=== PATIENT | male | born 1945 | race Caucasian/White ===

== ENCOUNTER 2023-05-29 15:33 | Emergency (ER) | payer OTHER, BC ==
[~2023-05-29] VITALS: Ht 175.3 cm; Wt 81.0 kg
[~2023-05-29 15:33] MED LIST: AGGRENOX 25 MG-21 EA PO; ALLEGRA ALLERG180 MG PO; AMLODIPINE BESYL5 MG PO; ASPIR-LOW81 MG PO; ASPIRIN325 MG PO; FLUTICASONE PRO16 GM NAS; LOSARTAN POTAS100 MG PO; MONTELUKAST SOD10 MG PO; PROAIR HFA8.5 GM INH; PULMICORT FLE180 MCG INH; RANITIDINE HCL150 MG PO; SIMVASTATIN40 MG PO; TERBINAFINE HC250 MG PO; VIAGRA100 MG PO
[2023-05-29 16:01] LABS: BASOPHILS 0.8 % (0-2); EOSINOPHILS 1.9 % (0-6); HEMOGLOBIN 15.4 g/dL (12.0-18.0); LYMPHOCYTES 19.2 % (24-44); MCH 31.1 (27-36); MCHC 33.5 g/dl (30-36); MCV 92.7 fl (81-99); MONOCYTES 9.7 % (0-12); NEUTROPHILS 68.4 % (39-80); PLATELET COUNT 257 K/uL (140-440); RBC 4.96 M/ul (4.3-5.7); RDW 14.9 (10.5-15.0)
[2023-05-29 16:19] LABS: ALBUMIN/GLOBULIN RATIO 1.14 (1.1-2.4); ALCOHOL, MEDICAL <3 ng/dL (<3); ALKALINE PHOSPHATASE 119 U/L (46-116); ALT (SGPT) 25 U/L (14-59); ANION GAP 15.7 (7-21); AST (SGOT) 26 U/L (15-37); BILIRUBIN, TOTAL 0.8 ng/dL (0.2-1.0); BUN/CREATININE RATIO 13.18 (6.0-28.6); CALCIUM 8.8 mg/dL (8.5-10.1); CARBON DIOXIDE 25 mmol/L (21-32); CHLORIDE 99 mmol/L (98-107); CREATININE, SERUM 0.91 mg/dL (0.70-1.30); GLOMERULAR FILTRATION RATE,EST 86 mL/min (>60); POTASSIUM 3.7 mmol/L (3.5-5.1); PROTEIN, TOTAL 7.5 g/dL (6.4-8.2); UREA NITROGEN 12 mg/dL (7-18)
[2023-05-29 16:30] LABS: ABO O; ANTIBODY SCREEN NEGATIVE; RH NEGATIVE
[2023-05-29 18:24] VITALS: BP 174/96
== END 2023-05-29 18:29 | disposition home or self-care (01) ==
LOC: ED 15:33
PROVIDERS: Family Medicine
DX: S01.81XA Laceration without foreign body of other part of head, initial encounter (principal); S01.21XA Laceration without foreign body of nose, initial encounter; W18.30XA Fall on same level, unspecified, initial encounter; Z87.891 Personal history of nicotine dependence; Z79.899 Other long term (current) drug therapy
CPT/HCPCS: 12011; 36415; 70450; 70486; 72125; 80053; 80307; 85025; 86850; 86900; 86901; 99283-25; G0480

== ENCOUNTER 2025-01-30 06:53 | Day surgery (SDC) | payer MEDICARE ==
[2025-01-17 14:49] VITALS: BP 125/81
[~2025-01-30] VITALS: Ht 175.3 cm; Wt 76.0 kg
[~2025-01-30 06:53] MED LIST changes: +ACID CONTROLLER20 MG PO; +CIMETIDINE800 MG PO; +CLOPIDOGREL75 MG PO; +LACTATED RINGER'S 1,000 ML IV SCH; +MULTIVITAMIN1 EACH PO; +Ropivacaine HCl 20 MG/10 ML AMP ONE; +TRELEGY ELLIPT1 EACH INH; +VIAGRA25 MG PO; +VITAMIN D21250 MCG PO
[2025-01-30] MEDS ORDERED: CEFAZOLIN SODIUM 2 GM/20 ML SYR IV SCH ×2 (07:00→15:00)
[2025-01-30] MEDS ORDERED: PANTOPRAZOLE SODIUM 40 MG TABEC PO SCH (07:00)
[2025-01-30] MEDS ORDERED: OXYCODONE HCL 5 MG TAB PO SCH (07:00)
[2025-01-30] MEDS ORDERED: ROPIVACAINE IN 0.9% SOD CHL/PF 545 ML ELS.PMP.HR IRRIGATION SCH (07:00)
[2025-01-30] MEDS ORDERED: TRANEXAMIC ACID IN NACL,ISO-OS 1,000 MG/100 ML PIGGYBACK IV SCH ×3 (07:00→13:22)
[2025-01-30] MEDS ORDERED: GABAPENTIN 600 MG TAB PO SCH (07:00)
[2025-01-30] MEDS ORDERED: INTRA-ARTICULAR ANALGESIC INJECTION XX SCH (07:00)
[2025-01-30] MEDS ORDERED: IBLOOD GLUCOSE TEST STRIP 1 EA TEST VI PRN ×2 (07:00→11:30)
[2025-01-30] MEDS ORDERED: LIDOCAINE HCL 1% 5 ML SDV INJ ONE (07:00)
[2025-01-30 07:10] VITALS: BP 144/81
[2025-01-30] MEDS ORDERED: TRELEGY ELLIPT1 EAC1 INH (07:19)
[2025-01-30] MEDS ORDERED: ACID CONTROLLER20 MG PO (07:20)
--- NOTE | 2025-01-30 07:20 | NUR ---
PT NOT AVAILABLE FOR VISIT. PROVIDED PRAYER.
[2025-01-30] MEDS ORDERED: DEXAMETHASONE SOD PHOS 10 MG/ML VIAL ONE (08:18)
[2025-01-30] MEDS ORDERED: Ropivacaine HCl 0.5% 30 ML VIAL ONE (08:19)
[2025-01-30] MEDS ORDERED: SODIUM CHLORIDE 0.9% 20 ML IV ONE (08:19)
[2025-01-30] MEDS ORDERED: LIDOCAINE HCL 2% 20 MG/ML VIAL INJ ONE (08:19)
[2025-01-30] MEDS ORDERED: OXYCODONE HCL 5 MG TAB PO PRN (10:30)
[2025-01-30] MEDS ORDERED: KETOROLAC TROMETHAMINE 30 MG/ML VIAL IV PRN (10:30)
[2025-01-30] MEDS ORDERED: LIDOCAINE HCL 2% 5 ML SDV ONE (10:31)
[2025-01-30] MEDS ORDERED: DEXAMETHASONE SOD PHOS 4 MG/ML VIAL ONE (11:03)
[2025-01-30] MEDS ORDERED: NALOXONE HCL 0.4 MG SYR IV PRN (11:30)
[2025-01-30] MEDS ORDERED: fentaNYL citrate 50 MCG/ML SDV IV PRN (11:30)
[2025-01-30] MEDS ORDERED: OXYCODONE HCL5 M1 PO (12:07)
[2025-01-30] MEDS ORDERED: CEFUROXIME250 MG PO (12:07)
[2025-01-30] MEDS ORDERED: GABAPENTIN300 MG PO (12:08)
[2025-01-30] MEDS ORDERED: SENNA LAX8.6 MG PO (12:08)
--- NOTE | 2025-01-30 12:33 | NUR ---
01/30/25 1233 Rhea Gordon LE 1215: PT ARRIVES TO PACU ASLEEP AND SNORING. HE WAKES UP TO STIMULI AND ANSWERS QUESTIONS APPROPRIATELY. LE 1220: PT JENNIFER PAIN OR NAUSEA. LE 1225: HELL PROTECTORS PLACED, CRYO CUFF PLACED. IMAGING CALLED FOR XRAYS. LE 1228: XRAY AT THE BEDSIDE.
[2025-01-30 12:59] VITALS: BP 123/64
--- NOTE | 2025-01-30 13:07 | NUR ---
1251- PT ARRIVES TO DAY SURGERY FROM PACU. BEDSIDE REPORT RECIEVED FROM ANNIE HILLMAN. PT IS SIPPING ON WATER AND TOLERATING WELL. PT DENIES PAIN AND NAUSEA. SPINAL IS AT L2. LR INFUSING. SURGICAL SITE IS CDI. PT IS UP AND TALKIND WITH RN AND AT BEDSIDE. CALL LIGHT IN REACH AND BED IS LOCKED IN THE LOWEST POISITON. DISCHARGE CRITERIA DISCUSSED AND PT IS UNDERSTANDING. VITAL SIGNS OBTAINED.
[2025-01-30 13:54] VITALS: BP 110/75
--- NOTE | 2025-01-30 13:57 | NUR ---
1350- PT IS RESTING IN HIS STRETCHER. PT IS SIPPING ON WATER AND SNACKING ON PUDDING. PT DENIES NAUSEA AND REPORTS 2/10 PAIN THAT IS TOLERABLE. PT IS ABLE TO FEEL HIS TOES BUT REPORTS THAT HE IS STILL A LITTLE NUMB. PT REPORTS HIS KNEE FEELS LIKE "IT'S BEEN WORKED HARD". SURGICAL SITE IS CDI. LR INFUSING. CALL LIGHT IS IN REACH AND BED IS LOCKED IN THE LOWEST POSITION. VITAL SIGNS OBTAINED.
[2025-01-30] MEDS ORDERED: GABAPENTIN 300 MG CAP PO SCH (15:00)
[2025-01-30 15:31] VITALS: BP 140/75
--- NOTE | 2025-01-30 17:05 | NUR ---
1500- PHYSICAL THERAPY WITH PT WORKING IN ROOM. PT UP TO VOID AND IS ABLE TO VOID 200ML OF CLEAR YELLOW URINE. PHYSICAL THERAPY WITH PT AND TAKING HIM OFF THE FLOOR. 1511- PT RETURNS FROM THE FLOOR AND HAS PASSED PHYSICAL THERAPY. PT PASSES PHYSCIAL THERAPY AND GETTING DRESSED WITH THE ASSISTANCE OF PHYSCIAL THERAPY. DR. ANTONIO CALLED AND ORDER FOR DISCHARGE RECEIVED. 1532- PT WAS TO RECIEVE ANCEF, IV HAS INFILTRATED, REMOVED AT THIS TIME. VITAL SIGNS OBTAINED. PT REPORTS 5/10 PAIN THAT FEELS ACHY, BUT REPORTS THAT IT IS TOLERABLE. PT DENIES NAUSEA. PT TO GET SECOND IV TO RECIEVE ANCEF, PER DR. ANTONIO. 1540- IV STARTED. AND ANCEF GIVEN, SEE EMAR. 1545- IV REMOVED. 1550- PT REPORTS THAT HE HAS TO USE THE RESTROOM. PT IS ABLE TO SAFELY GET TO RESTROOM USING FRONT WHEELED WALKER AND VOID. PT CRYOCUFF FILLED WITH ICE AND ALL BELONGINGS PUT TOGETHER. DISCHARGE INFORMATION GONE OVER. PT AND DENY QUESTIONS AND CONCERNS. 1609- PT HAS ALL BELONGINGS AND ALL EDUCATION TOGETHER. PT DC FROM DAY SURGERY AT THIS TIME. 1606
[2025-01-30] MEDS ORDERED: ASPIRIN 325 MG TAB PO SCH (21:00)
[2025-01-30] MEDS ORDERED: SENNOSIDES 1 TAB PO SCH (21:00)
--- NOTE | 2025-01-31 06:49 | OR ---
[facility] [address], [place] [address] Signed DATE OF OPERATION: 01/30/2025 SURGEON: Elen Tate MD PREOPERATIVE DIAGNOSIS: Degenerative joint disease severe, left knee. POSTOPERATIVE DIAGNOSIS: Degenerative joint disease severe, left knee. PROCEDURE PERFORMED: Left total knee arthroplasty with José. CODING SPECIALIST: Taryn Reynolds PA-C. ANESTHESIA: Spinal. BLOOD LOSS: 200 mL. IMPLANTS: Grace Triathlon size 5/4 9 mm polyethylene and 35 mm patella. BRIEF HISTORY: Jessi is an 80-year-old gentleman with progressive worsening of his arthritis. This was nonresponsive to nonoperative treatment. Risks and benefits of operative treatment were discussed with him and elected to proceed. DESCRIPTION OF PROCEDURE: Once consent was obtained, he was taken to the operating room. After adequate anesthesia, he was placed on the operating room table. All downside pressure points were well padded. The left leg was prepped and draped in a standard sterile fashion. No tourniquet was placed. The left knee was approached through a standard anterior midline incision, carried through skin and subcutaneous tissue. The skin flaps were developed medially and laterally. A low mid vastus arthrotomy was performed and the infrapatellar fat pad was excised. The MCL was elevated as a sleeve around the posteromedial corner. The anterior horns of menisci were transected. The ACL was transected. PCL was found to be intact. The navigation computer arrays were placed in Electronically Signed By: ELEN TATE MD 01/31/25 0649 PATIENT NAME: JESSI ESCOBAR OPERATIVE REPORT DATE OF : 45 REPORT #: [id number] PHYSICIAN: ELEN TATE MD PCP: LUDIVINA DUNCAN PAC REPORT IS CONFIDENTIAL AND NOT TO BE RELEASED WITHOUT AUTHORIZATION [facility] [address], [place] [address] Signed the distal femur and proximal tibia. The leg was then registered with computer, followed by the fine anatomic points of the knee. The four ligamentous poses were then taken and slight adjustments were made to the rotation and depth of the prosthesis. The robot was then brought in and four straight cuts and two angle cuts were made with care taken to protect the patellar tendon and MCL. The bony cuts were then removed as were any remaining osteophytes. The posterior osteophytes removed off the femur. No release was performed. The trials were then positioned. Knee was taken through range of motion from 0-120 degrees of flexion with good stability throughout. The patella was cut sized and drilled for 35 patella. The distal femoral drill holes were completed. The proximal tibia was completed using the keel punch followed by the four drill holes. The prosthesis was obtained. The tibia was impacted into position until it was seated flush. The polyethylene was snapped into position and the femur was impacted. The knee was extended and loaded. The patella was clamped into position and patellar tracking was checked, found to be good. The wound was then copiously irrigated with one bottle Surgiphor followed by normal saline. The periarticular soft tissues were injected with 60 mL Toradol and ropivacaine mixture. The On-Q pain pump was then percutaneously placed into the adductor canal. The arthrotomy was then closed using #2 FiberWire and #2 Stratafix, subcutaneous tissue with 0 Stratafix and skin with 3-0 Stratafix. Wound was sealed with LiquiBand and Steri-Strips, and dressed with Acticoat-7 dressing, ABD, and Tim wrap. He tolerated the procedure well. All sponge, needle, and instrument counts were correct. Elen Tate MD BA/MODL /[id number] Copies: ~ Electronically Signed By: ELEN TATE MD 01/31/25 0649 PATIENT NAME: JESSI ESCOBAR OPERATIVE REPORT DATE OF : 45 REPORT #: [id number] PHYSICIAN: ELEN TATE MD PCP: LUDIVINA DUNCAN PAC REPORT IS CONFIDENTIAL AND NOT TO BE RELEASED WITHOUT AUTHORIZATION
[2025-01-31] MEDS ORDERED: CELECOXIB 200 MG CAP PO SCH (08:00)
--- NOTE | 2025-01-31 10:50 | EKG ---
[facility] [address] [facility] [place], [place] [address] Signed Normal sinus rhythm Normal ECG Confirmed by Layla Rivera DO ([id number]) on 01/31/2025 10:50:09 AM Electronically Signed By: LAYLA RIVERA DO 01/31/25 1050 PATIENT NAME: JESSI ESCOBAR Electrocardiogram DATE OF : 45 PHYSICIAN: LAYLA RIVERA DO REPORT #: [id number] REPORT IS CONFIDENTIAL AND NOT TO BE RELEASED WITHOUT AUTHORIZATION
== END 2025-01-30 16:09 | disposition home or self-care (01) ==
LOC: DS 06:53
PROVIDERS: ATTEND Specialist
PROC: 0SRD0JA Replacement of Left Knee Joint with Synthetic Substitute, Uncemented, Open Approach (ICD-10-PCS; principal; 2025-01-30 09:15)
DX: M17.0 Bilateral primary osteoarthritis of knee (principal); J45.909 Unspecified asthma, uncomplicated; I25.10 Atherosclerotic heart disease of native coronary artery without angina pectoris; E78.00 Pure hypercholesterolemia, unspecified; Z86.73 Personal history of transient ischemic attack (TIA), and cerebral infarction without residual deficits; Z87.891 Personal history of nicotine dependence; Z79.02 Long term (current) use of antithrombotics/antiplatelets; Z79.899 Other long term (current) drug therapy; Z95.5 Presence of coronary angioplasty implant and graft
CPT/HCPCS: 01402; 64447; 64450; 64454; 73560; 76942; 93005; 93010; 97110; 97116; 97161; A9270; C1776; J0690; J1100; J2003; J2704; J2795; J7121; J7999

== ENCOUNTER 2025-07-10 06:55 | Day surgery (SDC) | payer MEDICARE ==
[~2025-07-10] VITALS: Ht 175.3 cm; Wt 75.0 kg
[~2025-07-10 06:55] MED LIST changes: +CEFUROXIME250 MG PO; +GABAPENTIN300 MG PO; +OXYCODONE HCL5 M1 PO; -Ropivacaine HCl 20 MG/10 ML AMP ONE; +SENNA LAX8.6 MG PO; +TRELEGY ELLIPT1 EAC1 INH
[2025-07-10] MEDS ORDERED: OXYCODONE HCL 5 MG TAB PO SCH (07:00)
[2025-07-10] MEDS ORDERED: ROPIVACAINE IN 0.9% SOD CHL/PF 545 ML ELS.PMP.HR IRRIGATION SCH (07:00)
[2025-07-10] MEDS ORDERED: PANTOPRAZOLE SODIUM 40 MG TABEC PO SCH (07:00)
[2025-07-10] MEDS ORDERED: IBLOOD GLUCOSE TEST STRIP 1 EA TEST VI PRN ×2 (07:00→10:45)
[2025-07-10] MEDS ORDERED: CEFAZOLIN SODIUM 2 GM in SODIUM CHLORIDE 0.9% 100 ML IV SCH ×2 (07:00→17:00)
[2025-07-10] MEDS ORDERED: TRANEXAMIC ACID IN NACL,ISO-OS 1,000 MG/100 ML PIGGYBACK IV SCH ×2 (07:00→12:00)
[2025-07-10] MEDS ORDERED: LIDOCAINE HCL 1% 5 ML SDV INJ ONE (07:00)
[2025-07-10 07:14] VITALS: BP 137/78
[2025-07-10] MEDS ORDERED: Ropivacaine HCl 0.5% 30 ML VIAL ONE (08:03)
[2025-07-10] MEDS ORDERED: LIDOCAINE HCL 2% 5 ML SDV ONE (08:03)
[2025-07-10] MEDS ORDERED: ACETAMINOPHEN 1,000 MG/100 ML VIAL ONE (08:06)
[2025-07-10] MEDS ORDERED: OXYCODONE HCL 5 MG TAB PO PRN (09:00)
[2025-07-10] MEDS ORDERED: KETOROLAC TROMETHAMINE 30 MG/ML VIAL IV PRN (09:00)
[2025-07-10] MEDS ORDERED: fentaNYL citrate 100 MCG/2 ML VIAL ONE (10:13)
[2025-07-10] MEDS ORDERED: NALOXONE HCL 0.4 MG SYR IV PRN (10:45)
[2025-07-10] MEDS ORDERED: HYDROmorphone HCL 1 MG/ML SYR IV PRN (10:45)
[2025-07-10] MEDS ORDERED: fentaNYL citrate 50 MCG/ML SDV IV PRN (10:45)
[2025-07-10] MEDS ORDERED: OXYCODONE HCL5 M1 PO (11:09)
[2025-07-10] MEDS ORDERED: DULOXETINE HCL30 MG PO (11:09)
[2025-07-10] MEDS ORDERED: SENNA LAX8.6 MG PO (11:09)
[2025-07-10] MEDS ORDERED: ACETAMINOPHEN500 MG PO (11:09)
[2025-07-10] MEDS ORDERED: CEFUROXIME250 MG PO (11:09)
--- NOTE | 2025-07-10 11:37 | NUR ---
07/10/25 Mihaela7 Iraida Good 1118- PT PRESENTS TO PACU, SEMI ALANIS POSITION, NON REACTIVE TO STIMULUS. OPA IN PLACE WITH NPA IN RIGHT NARE, JAW THRUST NEEDED TO MAINTAIN AIRWAY, O2 AT 6L PER MASK. LR INFUSING TO LW IV. ABD SOFT, NON DISTENDED. DRESSING TO RIGHT KNEE, CDI. PULSES INTACT, MIRLANDE HOSE APPLIED AND FOOT PUMPS. KNEE ELEVATED AND HEELS. ALL MONITORS IN PLACE. PT HYPOTENSIVE, MEDICATED PER Alonso COHEN CRNA. 1123- XRAY CALLED FOR POST OP KNEE. 1130- BP IMPROVED, LR INFUSING TO LW. CONTINUE TO MONITOR.
[2025-07-10 12:07] VITALS: BP 113/60
--- NOTE | 2025-07-10 12:11 | NUR ---
1205-PT BACK TO ROOM FROM PACU ON RA. RECEIVED REPORT FROM NICOLE VALENCIA. PT IS AWAKE. RESP EVEN AND UNLABORED. DENIES PAIN AND NAUSEA. PT TAKING SIPS OF WATER. ON-Q PUMP SET AT 4. CRYO CUFF IN PLACE AND RUNNING. AT BEDSIDE. NO OTHER NEEDS AT THIS TIME. CALL LIGHT WITHIN REACH.
[2025-07-10 13:15] VITALS: BP 146/76
--- NOTE | 2025-07-10 13:15 | NUR ---
PT RESTING IN BED AND REPORTS BEING COLD WARM AIR GIVEN. PT REPORTS PAIN 6/10 AND PAIN MEDICATION GIVEN. PT VOID NOTED CLEAR AND YELLOW. PLAN OF CARE DISCUSSED. PT REPORTS HE IS GETTING "WARMED UP AND FEELING BETTER." ALL QUESTIONS ANSWERED. CALL LIGHT WITHIN REACH. PT MOVING HIS FEET AND REPORTS NO NUMBNESS AT THIS TIME.
--- NOTE | 2025-07-10 14:01 | NUR ---
PHYSICAL THERAPY IN WITH PT.
[2025-07-10 14:41] VITALS: BP 136/73
[2025-07-10] MEDS ORDERED: ACETAMINOPHEN 500 MG TAB PO SCH (15:00)
--- NOTE | 2025-07-10 15:32 | NUR ---
1430-PT BACK TO ROOM FROM PHYSICAL THERAPY. PHYSICAL THERAPY IN ROOM HELPING PT GET DRESSED. 1441-PT LAYING IN BED DRESSED. RESP EVEN AND UNLABORED. PT IS READY TO GO HOME. WIEF IN ROOM. WAITING ON ANTIBIOTIC TO FINISH. CALL LIGHT WITHIN REACH.
--- NOTE | 2025-07-10 15:34 | NUR ---
1500-WENT OVER DISCHARGE INSTRUCTIONS WITH PT AND . ALL QUESTIONS ANSWERED. WENT OVER DISCHARGE MEDICATIONS. 1505-PT AMBUALTES TO WHEELCHAIR AND RIDE PROVIDED TO FRONT OF HOSPITAL WHERE WAS WAITING WITH THE CAR.
[2025-07-10] MEDS ORDERED: SENNOSIDES 1 TAB PO SCH (21:00)
[2025-07-11] MEDS ORDERED: ASPIRIN 325 MG TAB PO SCH (08:00)
[2025-07-11] MEDS ORDERED: CELECOXIB 200 MG CAP PO SCH (08:00)
[2025-07-11] MEDS ORDERED: DULOXETINE HCL 30 MG CAP PO SCH (09:00)
--- NOTE | 2025-07-17 06:53 | OR ---
[facility] [address] [place], [place] [address] Signed DATE OF OPERATION: 07/10/2025 SURGEON: Elen Tate MD PREOPERATIVE DIAGNOSIS: Severe degenerative joint disease, right knee. POSTOPERATIVE DIAGNOSIS: Severe degenerative joint disease, right knee. PROCEDURE PERFORMED: Right total knee arthroplasty José. CONTENT CREATION MANAGER: Taryn Reynolds PA-C. Taryn was present and critical for all portions of procedure. ANESTHESIA: Spinal. BLOOD LOSS: 200 mL. TOURNIQUET TIME: 0. IMPLANTS: Grace Triathlon size 5 35 mm patella and a 10 mm. BRIEF HISTORY: Jessi is an 80-year-old gentleman with significant arthritis in both knees. He had undergone left total knee with good results, wished to proceed with the right. Risks and benefits of operative treatment were discussed with him and he elected to proceed. DESCRIPTION OF PROCEDURE: Once consent was obtained, he was taken to the operating room. After adequate anesthesia, he was placed on operating room table. All downside pressure points were well padded. The hip bump was placed under the right hip. The leg was prepped and draped in a standard sterile fashion. The knee was approached through standard anterior midline incision, carried through skin and subcutaneous tissue. Low mid vastus Electronically Signed By: ELEN TATE MD 07/17/25 0653 PATIENT NAME: JESSI ESCOBAR OPERATIVE REPORT DATE OF : 45 REPORT #: [id number] PHYSICIAN: ELEN TATE MD PCP: LUDIVINA DUNCAN PAC REPORT IS CONFIDENTIAL AND NOT TO BE RELEASED WITHOUT AUTHORIZATION [facility] [address] [place], [place] [address] Signed arthrotomy was performed and the infrapatellar fat pad was excised. The MCL was elevated as a sleeve around the posteromedial corner. Anterior horns of menisci were transected. The ACL was transected. The PCL was found to be intact. The navigation computer arrays were then placed in the distal femur and proximal tibia. The leg was then registered with the computer followed by the fine anatomic points of the knee. The varus valgus testing was undertaken and adjustments were made both the femoral and tibial prosthesis alignments. The ligaments were balanced. Once this was completed, the robot was brought in. Four straight cuts and two angle cuts were made with care taken to protect the patellar tendon and MCL. The bony remnants were removed as were any remaining osteophytes. The posterior osteophytes removed off the femur. Posterior release was performed due to a 10 degree flexion contracture. The trials were then positioned. The knee was taken from 0-130 degrees with good stability. The patella tracked well. The patella was cut, sized, and drilled for a 35 mm patella. The distal femoral drill holes were completed and the proximal tibia was completed using the keel punch followed by the four drill holes. The prosthesis was obtained. The tibia was impacted into position first followed by the polyethylene. The femur was then impacted until it was well seated. The knee was extended and loaded. The patella was clamped into position until again it was well seated on the cut. The patellar tracking was checked again, found to be good. The knee was irrigated using one bottle of Surgiphor followed by normal saline. The periarticular soft tissues were injected with 100 mL ropivacaine Toradol mixture. The On-Q pain pump was percutaneously placed into the adductor canal from the suprapatellar pouch. The arthrotomy was then closed using a combination of #2 FiberWire and #2 Stratafix, subcutaneous tissue with 0 Stratafix and skin with 3-0 Stratafix. The wound was dressed with Acticoat-7 dressing, ABD, and Tim wrap. He tolerated the procedure well. All sponge, needle, and instrument counts were correct. Elen Tate MD BA/MODL /[id number] Electronically Signed By: ELEN TATE MD 07/17/25 0653 PATIENT NAME: JESSI ESCOBAR OPERATIVE REPORT DATE OF : 45 REPORT #: [id number] PHYSICIAN: ELEN TATE MD PCP: LUDIVINA DUNCAN PAC REPORT IS CONFIDENTIAL AND NOT TO BE RELEASED WITHOUT AUTHORIZATION [facility] [address] [place] [id number] Signed Copies: ~ Electronically Signed By: ELEN TATE MD 07/17/25 0653 PATIENT NAME: JESSI ESCOBAR OPERATIVE REPORT DATE OF : 45 REPORT #: [id number] PHYSICIAN: ELEN TATE MD PCP: LUDIVINA DUNCAN PAC REPORT IS CONFIDENTIAL AND NOT TO BE RELEASED WITHOUT AUTHORIZATION
== END 2025-07-10 15:05 | disposition home or self-care (01) ==
LOC: DS 06:55
PROVIDERS: ATTEND Specialist
PROC: 3E0T3BZ Introduction of Anesthetic Agent into Peripheral Nerves and Plexi, Percutaneous Approach (ICD-10-PCS; 2025-07-10)
PROC: 3E0T3BZ Introduction of Anesthetic Agent into Peripheral Nerves and Plexi, Percutaneous Approach (ICD-10-PCS; 2025-07-10)
PROC: 0SRC0JZ Replacement of Right Knee Joint with Synthetic Substitute, Open Approach (ICD-10-PCS; principal; 2025-07-10 09:25)
DX: M17.11 Unilateral primary osteoarthritis, right knee (principal); G89.18 Other acute postprocedural pain; I25.10 Atherosclerotic heart disease of native coronary artery without angina pectoris; E78.00 Pure hypercholesterolemia, unspecified; Z87.891 Personal history of nicotine dependence
CPT/HCPCS: 0055T; 27447; 64447; 64454; 01402; 64473; 73560; 97116; 97161; 97530; A9270; C1713; C1776; J0131; J0688; J2003; J2704; J2795; J3010; J7121; J7999